=== PATIENT | female | born 2005 | race Two or more races ===

== ENCOUNTER 2024-07-04 20:35 | Emergency (ER) | payer BC, OTHER, SELFPAY ==
[2024-07-04 20:40] VITALS: BP 138/68
[2024-07-04 21:05] LABS: % Basophils 0.8 % (0-2); % Eosinophils 1.8 % (0-6); % Immature Granulocytes 0.2 % (0-0.5); % Lymphocytes 33.5 % (20.5-51.1); % Monocytes 9.4 % (1.7-9.3); % Neutrophils 54.3 % (42.2-75.2); Absolute Basophils 0.1 10^3/uL (0-0.2); Absolute Eosinophils 0.1 10^3/uL (0-0.7); Absolute Lymphocytes 2.1 10^3/uL (1.2-3.4); Absolute Monocytes 0.6 10^3/uL (0.1-0.6); Absolute Neutrophils 3.4 10^3/uL (1.4-6.5); Hematocrit 33.9 % (37.0-47.0); Hemoglobin 11.2 g/dL (12.0-16.0); Mean Corpuscular Hgb 25.3 pg (27.0-31.0); Mean Corpuscular Volume 76.7 fL (81.0-99.0); Mean Platelet Volume 10.7 fL (7.4-10.4); Nucleated Red Blood Cells % 0 %; Platelet Count 277 10^3/uL (130-400); Red Blood Cell Count 4.42 10^6/uL (4.20-5.40); Red Cell Dist. Width 16.3 % (11.5-14.5); White Blood Cell Count 6.2 10^3/uL (4.8-10.8)
[2024-07-04 21:20] LABS: HCG, Serum Qualitative Screen Negative
[2024-07-04 21:38] LABS: ALT (SGPT) 12 U/L (0-35); AST (SGOT) 20 U/L (14-36); Albumin 4.3 g/dl (3.5-5.0); Alkaline Phosphatase 70 U/L (38-126); Blood Urea Nitrogen 7 mg/dl (7-17); Calcium 9.2 mg/dl (8.4-10.2); Carbon Dioxide 28 mmol/L (22-30); Chloride 105 mmol/L (98-107); Glucose 103 mg/dl (70-99); Potassium 3.8 mmol/L (3.5-5.1); Sodium 143 mmol/L (135-145); Total Bilirubin 0.3 mg/dl (0.2-1.3); Total Protein 7.4 g/dl (6.3-8.2); eGFR > 60.00
[2024-07-04 21:57] VITALS: BP 123/84
[2024-07-04 22:00] VITALS: BP 122/70
[2024-07-04 22:05] VITALS: BMI 23.1
[2024-07-04 22:29] LABS: Urine Albumin Negative (Neg - Trace); Urine Bilirubin Negative (Negative); Urine Character Clear (Clear); Urine Color Straw; Urine Glucose Negative (Negative); Urine Ketone Negative (Negative); Urine Leukocyte Trace (Negative); Urine Nitrite Negative (Negative); Urine Occult Blood 1+ (Negative); Urine Urobilinogen Negative (Neg - 1+)
[2024-07-04 22:36] LABS: Urine Red Blood Cell 0-2 /HPF (0-2); Urine Squamous Cell >20 /LPF (Few); Urine White Cell 0-2 /HPF (0-5)
[2024-07-04 23:00] VITALS: BP 103/69
[2024-07-05 00:03] VITALS: BP 115/76
[2024-07-05 00:24] LABS: D-Dimer < 0.27 ug/mlFEU (0.00-0.50)
[2024-07-05 00:28] LABS: Troponin I < 0.012 ng/ml
--- NOTE | 2024-07-05 00:43 | ED.GENMED ---
History of Present Illness
General
Chief Complaint: Heart Rate Problem
Source: patient
Exam Limitations: none
Time Seen by Provider: 07/04/24 23:07
Nursing documentation reviewed up to this point in time: agreed with
History of Present Illness
History of Present Illness:
19-year-old female with past medical history of anxiety presents with her family for evaluation after an episode of palpitations, shortness of breath, chest tightness. Patient reports that she had some soda this evening which she typically avoids
because the caffeine seems to trigger her anxiety. She was talking to her friend on the phone shortly thereafter and developed sensation of chest tightness, shortness of breath, palpitations and dizziness. She says that she ran out into the
hallway to tell her mother and asked to call EMS. She has had anxiety/panic episodes in the past but she says this was more severe than usual. She says that while she was in the ambulance on the way to the hospital her symptoms resolved and she
now feels better. She was given IV fluid bolus from EMS; according to EMS on arrival her heart rate was in the 140s.
Review of Systems
Review of Systems
All Other Systems: ROS reviewed and negative except as documented in HPI and ROS
Constitutional: Denies fever
Respiratory: Reports trouble breathing; Denies cough
Cardiac: Reports chest pain and palpitations; Denies diaphoresis
ABD/GI: Denies abdominal pain, nausea or vomiting
: Denies flank pain
Musculoskeletal: Denies neck pain or back pain
Neurological: Reports dizzy; Denies headache
Phy Exam
Physical Exam
Physical Exam:
General: Awake, alert, oriented x3; no acute distress
Head: Normocephalic, atraumatic
Eyes: Conjunctiva normal, EOMI
Throat: Airway intact, handling secretions
Neck: Trachea midline, supple without meningismus
Lungs: Clear to auscultation bilaterally, no wheezing, rales, rhonchi
Heart: Regular rate and rhythm, no murmurs, gallops, or rubs
Abd: Soft, non distended, nontender
Neuro: Cranial nerves grossly intact, speech fluid
Skin: no rash
Extremities: No edema in extremities, equal pulses in all extremities
Scores
Heart Failure Risk
Heart Failure Risk Score: Not Applicable
Heart Score for Chest Pain Patients
STEMI patient?: Not applicable
Withdrawal Assessment of Alcohol
Withdrawal Assessment Completed?: Not applicable
Course
Orders/Labs/Results
Orders:
Orders
07/04/24 20:43
EKG [Electrocardiogram (*1)] Urgent
Reason for Study: Tachycardia
EKG- Treatment ONCE
07/04/24 20:44
Test Result ONCE
07/04/24 20:47
CBC/With Diff [Complete Blood Count/With Diff] Urgent
CMP [Comprehensive Metabolic Panel] Urgent
HCG, Serum Qualitative Screen Urgent
07/04/24 22:20
Urinalysis Reflex To Culture Urgent
Date Specimen was Collected: 07/04/24
Time Specimen was Collected: 20:44
Urine Microscopic Reflex Cult Urgent
07/04/24 23:44
CR Chest - 2 Views Urgent
Comment:
Reason For Exam: sob
07/04/24 23:51
D-Dimer Urgent
Troponin I Urgent
Abnormal Lab Results
07/04/24 07/04/24
20:47 22:20
Hgb 11.2 L g/dL
(12.0-16.0)
Hct 33.9 L %
(37.0-47.0)
MCV 76.7 L fL
(81.0-99.0)
MCH 25.3 L pg
(27.0-31.0)
RDW 16.3 H %
(11.5-14.5)
MPV 10.7 H fL
(7.4-10.4)
Monocytes % 9.4 H %
(1.7-9.3)
Glucose 103 H mg/dl
(70-99)
Ur Occult Blood Reflex 1+ A
(Negative)
Leukocyte Esterase Rfl Trace A
(Negative)
07/04/24 20:47
07/04/24 20:47
Vital Signs
Initial and Last Documented VS:
Initial Vital Signs
Temp Pulse Resp BP Pulse Ox
36.7 C 96 18 138/68 99
07/04/24 20:40 07/04/24 20:40 07/04/24 20:40 07/04/24 20:40 07/04/24 20:40
Last Documented Vital Signs
Temp Pulse Resp BP Pulse Ox
37.4 C 85 17 103/69 99
07/04/24 22:05 07/05/24 00:16 07/04/24 23:45 07/04/24 23:00 07/04/24 23:30
MDM/Problems Addressed
Differential Diagnosis Includes:
Dysrhythmia including A-fib or SVT, panic attack, symptomatic anemia, electrolyte derangement, pneumonia, pneumothorax, PE and myocarditis considered less likely
MDM/Problems Addressed:
19-year-old female presents for evaluation after an episode of palpitations, chest tightness, shortness of breath and dizziness similar in quality but more intense then prior anxiety/panic attacks. Feels better emergency room. Vital signs are
normal here although she was apparently tachycardic for EMS. Physical exam as above. Her EKG shows sinus rhythm with normal QTc, no Brugada, no delta wave, no acute ischemic changes. Will send labs including a CBC and a CMP, check a troponin,
D-dimer, hCG. Check a chest x-ray. Will monitor here and reassess after the above.
Labs reviewed: CBC shows marginal anemia unlikely clinical significance. CMP no clinically significant abnormalities. Troponin undetectable. D-dimer negative. hCG negative. Chest x-ray reviewed by me shows no acute disease. Vitals have been
stable here. I do suspect this was likely panic related although with her tachycardia dysrhythmia/SVT may be considered�certainly these could be triggered by caffeine intake. Reasonable to refer to cardiology for outpatient monitoring. No clear
indication for admission to the hospital at this point in time. Patient and family feel comfortable with this plan. We spoke about return precautions and all questions were answered.
*Radiology
Radiology exam reviewed: preliminary read by ED provider
*Pulse Oximetry
Patient hypoxic: no
*EKG
Interpreted by ED Provider?: Yes
Heart Rate: 82
Rate: normal
Rhythm: sinus
Martin: normal axis
Interval: normal interval
QRS Pattern: normal QRS
Ischemia: no ischemia
*Critical Care Note
Total Time (30-74mins, 75-104mins- exclusive of procedures): Not Applicable
Data Reviewed
Source: patient, family and ambulance crew
ED Attending Note
-
Portions of this chart may have been created with voice recognition software.� Occasional wrong word or��sound alike� substitutions may have occurred due to the inherent limitations of voice recognition software.
Discharge Plan
Departure
Patient Disposition: Home (Routine Discharge)
Date of Disposition: 07/05/24
Time of Disposition: 00:49
Patient with high blood pressure during this ER visit?: No
Discharge Problem:
Dyspnea, Palpitations
Instructions: Panic Disorder (DC), Palpitations ED
Referrals:
Ramírez Lo MD [Family Provider] -
Jaret Simpson MD [Active] - Call in 1-3 days for appt
Activity Restrictions/Additional Instructions:
Thank you for visiting the Emergency Department at [facility].
1. Please schedule a follow up appointment as directed. Call first thing tomorrow morning to make an appointment.
2. If indicated, please take your medications as instructed and indicated on discharge paperwork.
3. If any of your symptoms do not improve, or persist, or become more severe within 6-12 hours, please return to the emergency department for further care.
4. Please return to the emergency department if you develop a headache, neck pain/stiffness, fever greater than 100.4F, chest pain, shortness of breath, persistent nausea, vomiting, slurred speech, difficulty walking, numbness/tingling, weakness,
signs of infection or any other symptoms that are worrisome to you.
Please call [phone] if you have any questions.
Interventions
Interventions:
*Risk Screen - Suicide Last Done: 07/04/24 22:08
*General Assessment Last Done: 07/04/24 22:08
*Neglect/Abuse Screening Last Done: 07/04/24 22:08
*ED COVID-19 Vaccine History Last Done: 07/04/24 22:08
ED- Cardiac Assessment Last Done: 07/04/24 22:05
ED-Psychological Assessment Last Done: 07/04/24 22:05
ED- Pulmonary Assessment Last Done: 07/04/24 22:05
Discharge Date and Time
Print Language: LATVIAN
== END 2024-07-05 01:04 | disposition home or self-care (01) ==
LOC: EMR 20:35
PROVIDERS: Emergency Medicine; EMERGENCY PHYSICIAN Emergency Medicine; FAMILY PHYSICIAN Family Medicine
DX: R06.09 Other forms of dyspnea (principal); R00.2 Palpitations; F41.9 Anxiety disorder, unspecified
CPT/HCPCS: 99285; 71046; 80053; 81003; 81015; 84484; 84703; 85025; 85379; 93005